=== PATIENT | female | born 1960 | race Hispanic/Latino ===

== ENCOUNTER → 2018-07-10 | Day surgery (SDC) | payer OTHER ==
[2018-07-09 11:20] LABS: ANION GAP 14.7 mmol/L (8-16); BLOOD UREA NITROGEN 21 mg/dL (7-26); BUN/CREATININE RATIO 25 (6-25); CALCIUM 9.9 mg/dL (8.4-10.2); CARBON DIOXIDE 28 mmol/L (22-29); CHLORIDE 99 mmol/L (98-107); CREATININE, SERUM 0.85 mg/dL (0.57-1.11); EST GLOMERULAR FILTRATION RATE > 60 ML/MIN (60-); GLUCOSE 160 mg/dL (74-118); POTASSIUM 3.7 mmol/L (3.5-5.1); SODIUM 138 mmol/L (136-145)
[~2018-07-10] MED LIST: CEFTRIAXONE SOD 1 GM VIAL ONE; CYCLOBENZAPRINE10 MG PO; DEXAMETHASONE SOD PHOS INJ 4 MG/ML VIAL ONE; DICYCLOMINE HCL10 MG; FENTANYL CITRATE/PF 100MCG/2 ML INJ ONE; IOPAMIDOL 610MG/1ML 300 MG/ML VIAL IV ONE; LIDOCAINE HCL 2% LOCAL INJ 5 ML SDV VIAL INJ ONE; LISINOPRIL-HCT1 EACH; METFORMIN HCL500 MG PO; METOCLOPRAMIDE HCL 10 MG/2ML VIAL ONE; MIDAZOLAM HCL 2 MG/2 ML VIAL ONE; OMEGA 3 1,0001 EACH; OMEPRAZOLE40 MG; ONDANSETRON HCL INJ 2 MG/ML VIAL ONE; PROPOFOL IV EMULSION 10 MG/ML 20 ML VIAL ONE; SEVOFLURANE INHAL SOLN 250 ML PEN BTL ONE
[2018-07-10 10:30] VITALS: BP 108/63
--- NOTE | 2018-07-10 12:01 | Operative Report ---
DATE OF PROCEDURE: July 10, 2018 PREOPERATIVE DIAGNOSES 1. Multiple chronic urinary tract infections. 2. Clinical signs and symptoms of interstitial cystitis. POSTOPERATIVE DIAGNOSES 1. Multiple chronic urinary tract infections. 2. Clinical signs and symptoms of interstitial cystitis. 3. Grade III prolapse, grade IV cystocele, and grade III rectocele. PROCEDURES 1. Cystourethroscopy with hydrodistention (entirely separate procedure for clinical signs and symptoms of interstitial cystitis). 2. Cystourethroscopy with left ureter catheterization and left retrograde pyelogram (separate procedure for multiple chronic urinary tract infections). 3. Cystourethroscopy with right ureter catheterization and right retrograde pyelogram (separate procedure for multiple chronic urinary tract infections). 4. Supervision of fluoroscopy. 5. Interpretation of retrograde pyelography. ANESTHESIA: General. ESTIMATED BLOOD LOSS: Minimal. COMPLICATIONS: None. INDICATIONS FOR PROCEDURE: Ms. Pierson is a very pleasant 87-year-old female with multiple chronic urinary tract infections and clinical symptoms of interstitial cystitis. She and I had a long discussion about alternatives, risks and benefits including doing nothing, cystoscopy, IVP, retrograde pyelograms, and renal ultrasound. She voiced understanding of the options, alternatives, risks and benefits and elected to proceed. PROCEDURE IN DETAIL: After informed consent was obtained, the patient was taken to the operative suite and placed supine on the operating table and underwent general anesthesia by the anesthesia service. She was placed in the dorsal lithotomy position and sterilely prepped and draped in the standard fashion for cystoscopy. A 22.5-Macedonian cystoscope was inserted per urethra. There was grade IV cystocele, grade III rectocele, and grade III prolapse seen. Panendoscopy revealed no tumors and no stones. A hydrodistention was performed which revealed a capacity of 800 mL, no glomerulations and no Hunner's ulcers. Bilateral retrograde pyelogram was performed which were normal except for air bubble filling defects. The bladder was drained. The patient was awakened from anesthesia and transported to the recovery room in excellent condition. SUPERVISION OF FLUOROSCOPY, INTERPRETATION OF RETROGRADE PYELOGRAPHY: I was present throughout the entire procedure and I supervised the use of fluoroscopy. There was no radiologist present at any time during this procedure. Attention was turned toward the left and right ureteral orifices, which were catheterized with an 8-Macedonian cone-tipped catheter in a retrograde fashion. Contrast was injected revealing delicate ureters, delicate pelvicaliceal systems except for air bubble filling defects fluoroscopy. IMPRESSION: Normal retrograde pyelograms. Job#: [id number]
== END | disposition home or self-care (01) ==
LOC: OR 06:37
PROVIDERS: ATTEND Urology
DX: N39.0 Urinary tract infection, site not specified (principal); N81.3 Complete uterovaginal prolapse; N39.46 Mixed incontinence; I10 Essential (primary) hypertension; E11.9 Type 2 diabetes mellitus without complications; K21.9 Gastro-esophageal reflux disease without esophagitis; Z01.810 Encounter for preprocedural cardiovascular examination; Z01.812 Encounter for preprocedural laboratory examination; Z79.82 Long term (current) use of aspirin; Z79.84 Long term (current) use of oral hypoglycemic drugs; Z68.35 Body mass index [BMI] 35.0-35.9, adult; Z84.1 Family history of disorders of kidney and ureter
CPT/HCPCS: 36415 ×2; 52005; 74420; 80048; 82948; 93005; C1758; J0696; J1100; J2001; J2250; J2405; J2704; J2765; Q9967